=== PATIENT | male | born 1950 | race Caucasian/White ===

== ENCOUNTER 2023-04-13 06:41 | Observation (INO) ==
[~2023-04-13 06:41] MED LIST: Buffered Lidocaine 1% SYRIN 1 ml INTRADERM ONE; Lactated Ringers 1000 ml BAG 1,000 ML IV SCH; Metoclopramide 5 MG/ML VIAL (10 mg) IV PRN; Naloxone 0.4 mg VIAL 0.4 mg/ml 1 ml VIAL IV PRN; Ondansetron 4 mg VIAL 2 MG/ML 2 ml VIAL IV PRN; fentaNYL 100 mcg/2 ml 50 MCG/ML VIAL IV PRN
[2023-04-13] MEDS ORDERED: Scopolamine 1 mg/72hr PATCH ONE (07:21)
[2023-04-13] MEDS: Scopolamine 1 mg/72hr PATCH TRANSDERM ONE ×2 (07:25→12:54)
[2023-04-13] MEDS ORDERED: Ondansetron 4 mg VIAL 2 MG/ML 2 ml VIAL IV PRN (07:26)
[2023-04-13 07:36] LABS: Rapid COVID-19 Molecular Undetected (Undetected)
[2023-04-13] MEDS ORDERED: Propofol 10 MG/ML 20 ML BTL ONE (08:56)
[2023-04-13] MEDS ORDERED: fentaNYL 100 mcg/2 ml 50 MCG/ML VIAL ONE (08:57)
[2023-04-13] MEDS ORDERED: Dexamethasone IV 4 MG/ML VIAL 1 ml VIAL ONE (08:57)
[2023-04-13] MEDS ORDERED: Glycopyrrolate IV 0.2 MG/ML 1 ML VIAL ONE (08:57)
[2023-04-13] MEDS ORDERED: Ondansetron 4 mg VIAL 2 MG/ML 2 ml VIAL ONE (08:57)
[2023-04-13] MEDS ORDERED: Lidocaine 2% PF 5 ML VIAL ONE (08:58)
[2023-04-13] MEDS ORDERED: GENTAMICIN ADULT IVPB ONE (09:00)
[2023-04-13] MEDS ORDERED: Ampicillin ADVAN 2 GM in NS 0.9% 100 ML 100 ML IVPB ONE (09:00)
[2023-04-13] MEDS ORDERED: NS 0.9% IVPB ONE (09:00)
[2023-04-13] MEDS ORDERED: Furosemide 20 mg/2 ml IV VIAL ONE (10:24)
[2023-04-13] MEDS: NS 0.9% 1000 ml BAG 1,000 ML IV SCH ×2 (12:54→20:26)
[2023-04-13] MEDS: Neomycin/Polym/Bacit TOP OINT 15 GM TOPICAL SCH ×4 (13:37→20:21)
[2023-04-13] MEDS: Magnesium Hydroxide LIQ 30 ML UDC PO SCH ×2 (13:37→20:20)
[2023-04-14] MEDS: NS 0.9% 1000 ml BAG 1,000 ML IV SCH (05:16)
[2023-04-14] MEDS: Magnesium Hydroxide LIQ 30 ML UDC PO SCH (08:19)
[2023-04-14] MEDS: Neomycin/Polym/Bacit TOP OINT 15 GM TOPICAL SCH (08:19)
[2023-04-14 10:07] VITALS: BP 140/67
== END 2023-04-14 11:30 | disposition home or self-care (01) ==
LOC: OR 06:41 → SSU 06:41
PROVIDERS: ADMIT Urology; ATTEND Urology